=== PATIENT | female | born 1935 | race Caucasian/White ===

== ENCOUNTER 2016-09-25 13:51 | Emergency (ER) | payer BC, OTHER ==
--- NOTE | 2016-09-25 13:57 | PDOC ---
History of Present Illness - General Chief Complaint: Pain, Acute Stated Complaint: PT FELL IN [employer] INJURING BACK ON A RACK Time Seen by Provider: 09/25/16 13:57 - History of Present Illness Initial Comments: 09/25/16 14:59 Patient with h/o arthritis presents to the ED after fall on her right side of her chest as she was dragged by the momentum of a heavy bag she tried to lift. Denies hitting her head or LOC. Not on aspirin or anti-coagulant medicine. Pain in her right ribcage when she stands up but comfortable and pain-free when she' s laying down. Superficial abrasion on her right ribcage and right dorsal arm. No sob, n/v/d. Past History - Past Medical History Allergies/Adverse Reactions: Allergies Allergy/AdvReac Type Severity Reaction Status Date / Time amoxicillin Allergy Intermediate Rash Verified 09/25/16 14:03 Penicillins Allergy Intermediate Rash Verified 09/25/16 14:02 formaldehyde Allergy Verified 09/25/16 14:03 Home Medications: Ambulatory Orders Clindamycin [Cleocin -] 150 mg PO Q6H 09/25/16 Meloxicam [Mobic] 7.5 mg PO DAILY 09/25/16 Methotrexate Sodium [Methotrexate] 2.5 mg PO WEEKLY 09/25/16 Omeprazole Magnesium [Prilosec] 10 mg PO 09/25/16 *Physical Exam - Physical Exam General Appearance: Yes: Nourished, Appropriately Dressed, Apparent Distress HEENT: positive: EOMI, UZMA, Normal ENT Inspection, Normal Voice, Symmetrical Neck: positive: Trachea midline, Normal Thyroid, Supple. negative: Tender Respiratory/Chest: positive: Lungs Clear, Normal Breath Sounds. negative: Chest Tender Cardiovascular: positive: Regular Rhythm, Regular Rate, S1, S2 Vascular Pulses: Dorsalis-Pedis (R): 2+, Doralis-Pedis (L): 2+ Gastrointestinal/Abdominal: positive: Normal Bowel Sounds, Soft. negative: Tender, Organomegaly Musculoskeletal: positive: Normal Inspection. negative: CVA Tenderness Extremity: positive: Normal Capillary Refill Neurologic: positive: upper doubler II-XII NML intact, Fully Oriented, Alert, Normal Mood/ Affect, Normal Response Medical Decision Making - Medical Decision Making 09/25/16 15:30 81F with pmh of arthritis presents to the ED after fall on her right ribcage. Rib and chest xray negative. Likely rib contusion. Tylenol for pain Follow up with PCP DR. Cleo Lawrence *DC/Admit/Observation/Transfer Diagnosis at time of Disposition: Fall, Rib contusion - Discharge Dispostion Disposition: HOME Condition at time of disposition: Stable Admit: No - Referrals Referrals: Cleo Lawrence MD [Staff Physician] - - Patient Instructions Printed Discharge Instructions: DI for Rib Contusion Additional Instructions: Follow up with Primary Physician
--- NOTE | 2016-09-25 13:58 | PDOC ---
Attending Attestation - Resident Resident Name: Jean BaptisteElver - ED Attending Attestation I have performed the following: I have examined & evaluated the patient, The case was reviewed & discussed with the resident, I agree w/resident's findings & plan, Exceptions are as noted - HPI HPI: 09/25/16 14:57 Patient with chronic osteoarthritis and benign vertigo, which are stable, last or balance in the store, fell against a shelf, impacting her right posterior rib cage. She then fell to the floor on her buttocks. She did not strike her head or injure her neck. She has only mild pain in the lateral right rib cage with movement of the trunk and deep inspiration. - Physicial Exam PE: 09/25/16 14:58 Vital signs stable. Fully alert. 2-3 cm contusion right mid posterior lateral rib cage. Full breath sounds, no splinting. Normal cardiovascular exam. Normal abdominal exam with no distention, or tenderness. No significant CVAT - Medical Decision Making 09/25/16 14:59 Contusion of the rib cage, mid right lateral. Mild pain. X-ray of the ribs and lungs negative. Symptomatic treatment and follow-up primary physician. Return to ER if symptoms worsen. Fully ambulatory and in no significant discomfort at discharge. Tylenol for pain. 09/25/16 15:08
[2016-09-25 14:18] VITALS: BP 161/62; PULSE 82; TEMP 98.3; BMI 26.0
[2016-09-25] MEDS ORDERED: ACETAMINOPHEN 325 MG TABLET (FP) PO ONE (15:08)
[2016-09-25] MEDS ORDERED: ACETAMINOPHEN 325 MG TABLET (FP) ONE (15:17)
== END 2016-09-25 15:33 | disposition home or self-care (01) ==
LOC: FER 13:51
DX: S20.219A Contusion of unspecified front wall of thorax, initial encounter (principal); W18.39XA Other fall on same level, initial encounter; Y93.89 Activity, other specified; Y92.512 Supermarket, store or market as the place of occurrence of the external cause; M19.90 Unspecified osteoarthritis, unspecified site
CPT/HCPCS: 71020-TC; 71101-TC-RT; 99282-25

== ENCOUNTER 2019-11-06 14:49 | Emergency (ER) | payer OTHER ==
[2019-11-06 15:15] VITALS: BMI 27.3
--- NOTE | 2019-11-06 15:48 | PDOC ---
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 She was sitting on the end of the bed. Fall 2: fell over next day when she bent over to tack picker a bandaid. did not hit head. no LOC. no lightheadedness. no prodromal sx; no palpitations, acute change in vision or hearing, no LOC. Recent visit to ENT for R ear fullness. 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 11/06/19 15:55 Past History - Medical History Allergies/Adverse Reactions: Allergies Allergy/AdvReac Type Severity Reaction Status Date / Time amoxicillin Allergy Intermediate Rash Verified 11/06/19 15:08 Penicillins Allergy Intermediate Rash Verified 11/06/19 15:08 formaldehyde Allergy Verified 11/06/19 15:08 Home Medications: Ambulatory Orders Meloxicam [Mobic] 7.5 mg PO DAILY 09/25/16 Methotrexate Sodium [Methotrexate] 2.5 mg PO WEEKLY 09/25/16 Omeprazole Magnesium [Prilosec] 10 mg PO DAILY 09/25/16 Cephalexin [Keflex] 500 mg PO BID #14 capsule 11/06/19 COPD: No HTN: No (rheumatoid arthritis) Other medical history: 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 - Surgical History Appendectomy: Yes - Reproductive History Is Patient Now?: No - Psycho-Social/Smoking History Smoking History: Never smoked Review of Systems - Review of Systems Able to Perform ROS?: Yes Is the patient limited Telugu proficient: No Constitutional: Yes: Weakness. No: Chills, Diaphoresis, Fever, Loss of Appetite HEENTM: Yes: Other (sensation of ear impaction). No: Blurred Vision, Tinnitus Respiratory: No: Cough, Shortness of Breath, SOB with Exertion Cardiac (ROS): Yes: Lightheadedness, Palpitations. No: Chest Pain, Edema, Irregular Heart Rate, Syncope ABD/GI: No: Nausea, Poor Appetite, Vomiting : Yes: Hematuria. No: Burning, Dysuria Musculoskeletal: Yes: Muscle Weakness. No: Muscle Pain Integumentary: No: Rash Neurological: No: Headache, Numbness, Paresthesia Endocrine: No: Unexplained Weight Gain, Unexplained Weight Loss All Other Systems: Reviewed and Negative *Physical Exam - Vital Signs Last Vital Signs Temp Pulse Resp BP Pulse Ox 99.0 F 79 16 165/70 98 11/06/19 15:17 11/06/19 15:17 11/06/19 15:17 11/06/19 15:17 11/06/19 15:17 - Physical Exam General Appearance: Yes: Nourished, Appropriately Dressed, Apparent Distress Neck: positive: Trachea midline, Normal Thyroid Respiratory/Chest: positive: Lungs Clear, Normal Breath Sounds. negative: Respiratory Distress, Accessory Muscle Use Cardiovascular: positive: Regular Rhythm, Regular Rate, S1, S2 Gastrointestinal/Abdominal: positive: Normal Bowel Sounds, Soft Musculoskeletal: positive: Normal Inspection. negative: CVA Tenderness, Vertebral Tenderness Extremity: positive: Normal Capillary Refill, Normal Inspection, Normal Range of Motion Neurologic: positive: Fully Oriented, Alert, Normal Response, Motor Strength 5/5 Heart Score/ECG Review - ECG Intrepretation Rhythm: Regular Rhythm - [place]: Normal - ST and T Flattened T Waves: No - ECG Impressions Normal ECG: Yes Comment:: 11/06/19 17:15 NSR ED Treatment Course - LABORATORY CBC & Chemistry Diagram: 11/06/19 16:30 11/06/19 16:30 Medical Decision Making - Medical Decision Making 11/06/19 16:02 84 yo F w/ PMHx vertigo, R eye blindness, R ear sebum impaction presents w/ two falls while bending over. DDx - 1. CVA/TIA 2. Vertebrobasilar insufficiency 3. BPPV 4. UTI 5. hypovolemia 11/06/19 21:12 no allergy to PCN 11/07/19 14:36 pt's UA was + for UTI -> will give ceftriaxone IV and reassess. milestones to go home: 1. tolerate PO -> achieved 2. normal BUN and Cr -> achieved 3. feels strong enough to go home. -> achieved 4. must ambulate -> achieved will DC home w/ Keflex. pt does not have true PCN allergy per patient Discharge - Discharge Information Problems reviewed: Yes Clinical Impression/Diagnosis: UTI (urinary tract infection) Qualifiers: Urinary tract infection type: site unspecified Hematuria presence: without hematuria Qualified Code(s): N39.0 - Urinary tract infection, site not specified Condition: Fair Disposition: HOME - Admission No - Additional Discharge Information Prescriptions: Cephalexin [Keflex] 500 mg PO BID #14 capsule - Follow up/Referral Referrals: Cleo Lawrence MD [Primary Care Provider] - - Patient Discharge Instructions Patient Printed Discharge Instructions: DI for Urinary Tract Infection (UTI) Additional Instructions: You were seen in the ER today for urinary symptoms. The results of your labs and imaging today showed a urinary tract infection. Please follow-up with your primary care doctor within 1-2 days to discuss your visit and make sure your symptoms have improved. Please return to the ER if you have any worsening pain, development of fevers or chills, loss of consciousness, inability to tolerate food or fluids, or any other concerns. I have sent medications to your pharmacy. Please take these medications as prescribed. - Post Discharge Activity
[2019-11-06] MEDS ORDERED: LACTATED RINGERS SOLUTION 1000 ML INFUS.BAG IV ONE (15:57)
--- OUTSIDE RECORDS SUMMARY | 2019-11-06 16:57 | XMS ---
:1935 Author [facility] Support Name Relationship Address Phone RE Unavailable Unavailable Unavailable FIDEL MILLAN FRIEND [place] [address] MAY ROBLES DAUGHTER [address] [place] [address] Re-disclosure Warning The records that you are about to access may contain information from federally- assisted alcohol or drug abuse programs. If such information is present, then the following federally mandated warning applies: This information has been disclosed to you from records protected by federal confidentiality rules (42 CFR part 2). The federal rules prohibit you from making any further disclosure of this information unless further disclosure is expressly permitted by the written consent of the person to whom it pertains or as otherwise permitted by 42 CFR part 2. A general authorization for the release of medical or other information is NOT sufficient for this purpose. The Federal rules restrict any use of the information to criminally investigate or prosecute any alcohol or drug abuse patient.The records that you are about to access may contain highly sensitive health information, the redisclosure of which is protected by Article 27-F of the [facility] Public Health law. If you continue you may haveaccess to information: Regarding HIV / AIDS; Provided by facilities licensed or operated by the [facility] Office of Mental Health; or Provided by the [facility] Office for People With Developmental Disabilities. If such information is present, then the following [facility] mandated warning applies: This information has been disclosed to you from confidential records which are protected by state law. State law prohibits you from making any further disclosure of this information without the specific written consent of the person to whom it pertains, or as otherwise permitted by law. Any unauthorized further disclosure in violation of state law may result in a fine or correction sentence or both. A general authorization for the release of medical or other information is NOT sufficient authorization for further disclosure. Insurance Providers Payer name Policy type Policy ID Covered Covered green party's Policy P selin / Coverage green party ID relationship to [employer] type [employer] [id number] SP [id number] MEDICARE
--- NOTE | 2019-11-06 17:18 | PDOC ---
Documentation entered by Lang Washburn SCRIBE, acting as scribe for Shwetha Suh DO. Shwetha Suh DO: This documentation has been prepared by the [employer], SCRIBE, under my direction and personally reviewed by me in its entirety. I confirm that the documentation accurately reflects all work, treatment, procedures, and medical decision making performed by me. Attending Attestation - Resident Resident Name: Sandro Enriquez - ED Attending Attestation I have performed the following: I have examined & evaluated the patient, The case was reviewed & discussed with the resident, I agree w/resident's findings & plan, Exceptions are as noted - HPI HPI: 11/06/19 15:32 The patient is a 84 year old female with a significant PMH of blood transfusion, anemia, vertigo, R eye blindness secondary to CN2 ischemic stroke who presents to the emergency department s/p 2 falls. Pt states she fell once yesterday and once today while leaning forward to pick something up from the floor. Pt denies hitting her head. Pt denies LOC. Pt reports she feels lightheaded when she sits up. The patient denies chest pain, shortness of breath, headache and dizziness. Denies fever, chills, cough, nausea, vomiting, diarrhea and constipation. Allergies: NKDA PCP: Cleo Lawrence - Physicial Exam PE: 11/06/19 15:33 GENERAL: Awake, alert, and fully oriented, in no acute distress HEAD: No signs of trauma EYES: EOMI, sclera anicteric, conjunctiva clear ENT: hearing grossly normal NECK: Normal ROM, supple, LUNGS: Breath sounds equal, clear to auscultation bilaterally. No wheezes, and no crackles HEART: Regular rate and rhythm, normal S1 and S2, no murmurs, rubs or gallops ABDOMEN: Soft, nontender, normoactive bowel sounds. No guarding, no rebound. No masses EXTREMITIES: Normal range of motion, no edema. No clubbing or cyanosis. NEUROLOGICAL: Cranial nerves II through XII grossly intact. generally weak all over SKIN: Warm, Dry, normal turgor, no rashes lesions noted. 11/06/19 17:12 - Medical Decision Making 11/06/19 17:14 a/p: 84yo female with urinary freq -yesterday with feeling of being off balance and almost fell -generally weak all over -diarrhea yesterday -no head injury or loc -pt denies cp/sob -denies dysuria, but urinary freq -suspect uti causing weakness -will send labs, ekg, cxr -ua, ucx -will give ivf hydration -will monitor and reassess 11/06/19 17:58 pt with UTI will start abx pt unsure if she was allergic to pcn, thinks poss rash will give rocephin 11/06/19 18:03 no elevated wbc chem pending 11/06/19 19:14 pt signed out pending chem Heart Score/ECG Review - ECG Intrepretation Comment:: 11/06/19 17:17 sinus at 67, nl axis, nl interval, no acute st changes, t wave inversions v1-2 Discharge - Discharge Information Problems reviewed: Yes Clinical Impression/Diagnosis: UTI (urinary tract infection) Condition: Fair - Follow up/Referral Referrals: Cleo Lawrence MD [Primary Care Provider] - - Patient Discharge Instructions - Post Discharge Activity
[2019-11-06 17:51] LABS: EPI CELLS 5 /uL (0-25.1); HYALINE CASTS 1 /uL (0-3.1); PH,URINE 6.5 (5.0-8.0); URINE APPEARANCE CLOUDY; URINE BACTERIA 6065 /uL (0-1359); URINE BILIRUBIN NEGATIVE (NEGATIVE); URINE COLOR YELLOW; URINE GLUCOSE (UA) NEGATIVE (NEGATIVE); URINE KETONE NEGATIVE (NEGATIVE); URINE LEUK ESTERASE 3+ (NEGATIVE); URINE NITRITE NEGATIVE (NEGATIVE); URINE PROTEIN TRACE (NEGATIVE); URINE RBC 20 /uL (0-23.9); URINE UROBILINOGEN 0.2 mg/dL (0.2-1.0); URINE WBC 1233 /uL (0-25.8)
[2019-11-06 17:53] LABS: BASO % 0.5 % (0-2.0); HEMATOCRIT 37.9 % (32.4-45.2); HEMOGLOBIN 13.1 GM/dL (10.7-15.3); MCH 33.1 pg (25.7-33.7); MCHC 34.5 g/dl (32.0-36.0); MEAN PLT VOLUME 8.7 fl (7.5-11.1); MONO % 9.4 % (3.8-10.2); NEUT % 55.1 % (42.8-82.8); PLATELET COUNT 228 K/MM3 (134-434); RBC 3.95 M/mm3 (3.60-5.2); RDW 13.1 % (11.6-15.6); WHITE BLOOD COUNT 8.3 K/mm3 (4.0-10.0)
[2019-11-06] MEDS ORDERED: CEFTRIAXONE 1 GM in DEXTROSE 5%-WATER - 100 ML IVPB ONE (17:57)
[2019-11-06] MEDS ORDERED: CEFTRIAXONE 1 GM/50 ML BAG ONE (18:08)
[2019-11-06 18:55] LABS: ALBUMIN 3.4 g/dl (3.4-5.0); ALK PHOS 121 U/L (45-117); ANION GAP 7 MMOL/L (8-16); BILIRUBIN,TOTAL 0.4 mg/dL (0.2-1); BLOOD UREA NITROGEN 19.6 mg/dL (7-18); CALCIUM 9.2 mg/dL (8.5-10.1); CHLORIDE 108 mmol/L (98-107); CO2 26 mmol/L (21-32); CREATININE 0.9 mg/dL (0.55-1.3); GLUCOSE,RANDOM 82 mg/dL (74-106); POTASSIUM 4.3 mmol/L (3.5-5.1); SGOT/AST 35 U/L (15-37); SGPT/ALT 29 U/L (13-61); SODIUM 141 mmol/L (136-145); TOT PROT 6.6 g/dl (6.4-8.2)
[2019-11-06 22:46] VITALS: BP 149/47; PULSE 85; TEMP 98.3
--- NOTE | 2019-11-07 10:01 | EKG ---
Test Reason : Blood Pressure : / mmHG Vent. Rate : 067 BPM Atrial Rate : 067 BPM P-R Int : 138 ms QRS Dur : 076 ms QT Int : 406 ms P-R-T Axes : 054 030 041 degrees QTc Int : 429 ms NORMAL SINUS RHYTHM NORMAL ECG NO PREVIOUS ECGS AVAILABLE Confirmed by Luis High ([id number]) on 11/07/2019 10:00:30 AM Referred By: Confirmed By:Luis High
== END 2019-11-06 23:00 | disposition home or self-care (01) ==
LOC: JER 14:49
DX: N39.0 Urinary tract infection, site not specified (principal)
CPT/HCPCS: 36415; 71045-TC-FY; 80053; 81003; 82550; 82553; 84484; 85025; 87086; 87186; 93005; 93010; 99285-25

== ENCOUNTER 2021-12-08 18:59 | Inpatient (IN) | payer OTHER ==
[2021-12-08 20:47] LABS: BASO % 1.1 % (0-2.0); EOS % 0.8 % (0-4.5); HEMATOCRIT 38.2 % (32.4-45.2); HEMOGLOBIN 13.2 GM/dL (10.7-15.3); LYMPH % 23.5 % (8-40); MCH 33.6 pg (25.7-33.7); MCHC 34.7 g/dl (32.0-36.0); MEAN CELL VOLUME 96.8 fl (80-96); MEAN PLT VOLUME 7.8 fl (7.5-11.1); MONO % 9.8 % (3.8-10.2); NEUT % 64.8 % (42.8-82.8); PLATELET COUNT 330 10^3/uL (134-434); RBC 3.94 M/mm3 (3.60-5.2); RDW 13.4 % (11.6-15.6); WHITE BLOOD COUNT 9.5 K/mm3 (4.0-10.0)
[2021-12-08 20:57] LABS: INR 0.94 (0.83-1.09); PROTHROMBIN TIME (PATIENT) 10.8 SEC (9.7-13.0)
[2021-12-08 20:59] LABS: ACTIVATED PTT 22.3 SECONDS (25.2-36.5)
[2021-12-08] MEDS ORDERED: ASPIRIN 325 MG TABLET PO ONE (21:05)
[2021-12-08 21:10] LABS: CHLORIDE 109 mmol/L (98-107); SODIUM 139 mmol/L (136-145)
[2021-12-08 21:12] LABS: BLOOD UREA NITROGEN 27.6 mg/dL (7-18); CALCIUM 9.3 mg/dL (8.5-10.1); CO2 25 mmol/L (21-32)
[2021-12-08 21:13] LABS: ALBUMIN 3.3 g/dl (3.4-5.0); GLUCOSE,RANDOM 91 mg/dL (74-106)
[2021-12-08] MEDS ORDERED: ASPIRIN 325 MG TABLET ONE (21:13)
[2021-12-08 21:16] LABS: CREATININE 1.1 mg/dL (0.55-1.3)
[2021-12-08 21:17] LABS: BILIRUBIN,TOTAL 0.4 mg/dL (0.2-1); TOT PROT 6.9 g/dl (6.4-8.2)
[2021-12-08 21:18] LABS: ALK PHOS 105 U/L (45-117)
[2021-12-08 21:23] LABS: ANION GAP 5 MMOL/L (8-16); SGOT/AST 86 U/L (15-37); SGPT/ALT 24 U/L (13-61)
[2021-12-08 21:44] LABS: PH,URINE 7.5 (5.0-8.0); URINE APPEARANCE CLEAR; URINE BILIRUBIN NEGATIVE (NEGATIVE); URINE COLOR YELLOW; URINE GLUCOSE (UA) NEGATIVE (NEGATIVE); URINE KETONE NEGATIVE (NEGATIVE); URINE LEUK ESTERASE NEGATIVE (NEGATIVE); URINE NITRITE NEGATIVE (NEGATIVE); URINE PROTEIN NEGATIVE (NEGATIVE); URINE UROBILINOGEN 0.2 mg/dL (0.2-1.0)
[2021-12-08 22:45] LABS: CALCIUM 9.3 mg/dL (8.5-10.1)
[2021-12-08 22:46] LABS: BLOOD UREA NITROGEN 27.6 mg/dL (7-18)
[2021-12-08 22:49] LABS: CREATININE 0.9 mg/dL (0.55-1.3)
[2021-12-08 23:09] LABS: MAGNESIUM 2.2 mg/dL (1.8-2.4)
[2021-12-08 23:13] LABS: PHOSPHOROUS 3.2 mg/dL (2.5-4.9)
[2021-12-09 07:30] LABS: EOS % 1.2 % (0-4.5); HEMATOCRIT 36.2 % (32.4-45.2); HEMOGLOBIN 12.5 GM/dL (10.7-15.3); LYMPH % 28.7 % (8-40); MCH 33.3 pg (25.7-33.7); MCHC 34.6 g/dl (32.0-36.0); MEAN CELL VOLUME 96.3 fl (80-96); MEAN PLT VOLUME 7.8 fl (7.5-11.1); MONO % 11.2 % (3.8-10.2); NEUT % 57.9 % (42.8-82.8); PLATELET COUNT 299 10^3/uL (134-434); RBC 3.76 M/mm3 (3.60-5.2); RDW 13.1 % (11.6-15.6); WHITE BLOOD COUNT 8.4 K/mm3 (4.0-10.0)
[2021-12-09 08:12] LABS: CALCIUM 8.7 mg/dL (8.5-10.1)
[2021-12-09 08:13] LABS: ALBUMIN 3.2 g/dl (3.4-5.0); MAGNESIUM 2.3 mg/dL (1.8-2.4)
[2021-12-09 08:14] LABS: BILIRUBIN,TOTAL 0.4 mg/dL (0.2-1)
[2021-12-09 08:16] LABS: CREATININE 0.7 mg/dL (0.55-1.3); PHOSPHOROUS 2.7 mg/dL (2.5-4.9)
[2021-12-09 08:17] LABS: TOT PROT 5.9 g/dl (6.4-8.2)
[2021-12-09] MEDS ORDERED: ASPIRIN COATED 81 MG TABLET.EC ONE (10:00)
[2021-12-09] MEDS: ASPIRIN 81 MG CHEWABLE TABLETS PO SCH (10:01)
[2021-12-09] MEDS ORDERED: ENOXAPARIN NA (PORCINE) 40 MG/0.4 ML DISP.SYRIN SQ ONE (10:01)
[2021-12-09] MEDS: ENOXAPARIN NA (PORCINE) 40 MG/0.4 ML DISP.SYRIN SQ SCH (10:02)
[2021-12-09 18:41] VITALS: BMI 28.0
[2021-12-09] MEDS: ATORVASTATIN CA 40 MG TABLET (FP) PO SCH (21:28)
[2021-12-09] MEDS ORDERED: ATORVASTATIN CA 80 MG TABLET (FP) PO SCH (22:00)
[2021-12-10] MEDS: ENOXAPARIN NA (PORCINE) 40 MG/0.4 ML DISP.SYRIN SQ SCH (09:55)
[2021-12-10] MEDS: ASPIRIN 81 MG CHEWABLE TABLETS PO SCH (09:55)
[2021-12-10] MEDS ORDERED: IBUPROFEN 600 MG TABLET (FP) PO PRN (14:02)
[2021-12-10] MEDS: ATORVASTATIN CA 40 MG TABLET (FP) PO SCH (21:38)
[2021-12-11] MEDS: ENOXAPARIN NA (PORCINE) 40 MG/0.4 ML DISP.SYRIN SQ SCH (10:01)
[2021-12-11] MEDS: ASPIRIN 81 MG CHEWABLE TABLETS PO SCH (10:01)
[2021-12-11] MEDS ORDERED: PANTOPRAZOLE 40 MG TABLET PO ONE (11:39)
[2021-12-11 14:40] VITALS: RESP 18
[2021-12-11 15:01] VITALS: BP 159/58; PULSE 77; TEMP 98.1
== END 2021-12-11 18:51 | disposition home or self-care (01) | DRG 69 ==
LOC: JER 18:59 → JERBED 20:57 → J4W 12-09 17:24
PROVIDERS: ADMIT Internal Medicine; ATTEND Internal Medicine
DX: G45.9 Transient cerebral ischemic attack, unspecified (principal); R42 Dizziness and giddiness; H47.011 Ischemic optic neuropathy, right eye; R53.1 Weakness; Z88.0 Allergy status to penicillin; M06.9 Rheumatoid arthritis, unspecified; H40.9 Unspecified glaucoma; H54.40 Blindness, one eye, unspecified eye; I10 Essential (primary) hypertension; R26.81 Unsteadiness on feet; K21.9 Gastro-esophageal reflux disease without esophagitis; R39.15 Urgency of urination; I65.21 Occlusion and stenosis of right carotid artery; W18.30XA Fall on same level, unspecified, initial encounter; Y92.89 Other specified places as the place of occurrence of the external cause
CPT/HCPCS: 36415; 70450-TC; 70496-TC; 70498-TC; 70544-TC; 70551-TC; 71045-TC-FY; 80048; 80053; 80061; 81003; 82962; 83735; 84100; 84443; 84484; 85025; 85610; 85730; 87086; 93005; 93010; 93306-TC; 97116-GP; 99291; C9803-CS; U0003; U0005

== ENCOUNTER 2024-03-31 13:35 | Emergency (ER) | payer OTHER ==
[2024-03-31 14:18] VITALS: TEMP 98.2; BMI 31.3
[2024-03-31] MEDS: ASPIRIN 81 MG CHEWABLE TABLETS PO ONE (14:45)
[2024-03-31 15:43] LABS: BASO % 0.2 % (0-2.0); HEMATOCRIT 21.2 % (32.4-45.2); LYMPH % 7.8 % (8-40); MCH 27.5 pg (25.7-33.7); MCHC 31.4 g/dl (32.0-36.0); MEAN CELL VOLUME 87.4 fl (80-96); MEAN PLT VOLUME 8.1 fl (7.5-11.1); MONO % 8.1 % (3.8-10.2); NEUT % 83.9 % (42.8-82.8); PLATELET COUNT 306 10^3/uL (134-434); RBC 2.42 M/mm3 (3.60-5.2); RDW 15.2 % (11.6-15.6); WHITE BLOOD COUNT 11.7 K/mm3 (4.0-10.0)
[2024-03-31] MEDS ORDERED: ACETAMINOPHEN INJECTION 100 ML ONE (15:45)
[2024-03-31 15:49] LABS: HEMOGLOBIN 6.7 GM/dL (10.7-15.3)
[2024-03-31 15:50] LABS: POTASSIUM 4.4 mmol/L (3.5-5.1)
[2024-03-31 15:52] LABS: CALCIUM 8.7 mg/dL (8.5-10.1); INR 1.03 (0.83-1.09); PROTHROMBIN TIME (PATIENT) 11.3 SEC (9.7-13.0)
[2024-03-31 15:53] LABS: ALBUMIN 3.1 g/dl (3.4-5.0); MAGNESIUM 2.3 mg/dL (1.8-2.4)
[2024-03-31 15:55] LABS: ACTIVATED PTT 24.8 SECONDS (25.2-36.5)
[2024-03-31 15:56] LABS: CREATININE 1.2 mg/dL (0.55-1.3)
[2024-03-31 15:57] LABS: BILIRUBIN,TOTAL 0.3 mg/dL (0.2-1); TOT PROT 5.8 g/dl (6.4-8.2)
[2024-03-31] MEDS: SODIUM CHLORIDE 0.9% 500 ML INFUS.BAG IV ONE (16:14)
[2024-03-31] MEDS: ACETAMINOPHEN 1000 MG/100 ML BAG IVPB ONE (16:15)
[2024-03-31] MEDS ORDERED: ASPIRIN 81 MG CHEWABLE TABLETS ONE ×2 (16:24→17:34)
[2024-03-31 17:08] LABS: N-TERMINAL BNP 15822.8 pg/ml (5-450)
[2024-03-31] MEDS ORDERED: FUROSEMIDE 40 MG/4 ML INJECTABLE VIAL ONE (17:34)
[2024-03-31] MEDS: FUROSEMIDE 40 MG/4 ML INJECTABLE VIAL IVPUSH ONE (17:56)
[2024-03-31 19:31] VITALS: BP 136/62; PULSE 116
[2024-03-31 19:39] VITALS: RESP 20
== END 2024-03-31 18:00 | disposition short-term general hospital (02) ==
LOC: JER 13:35
PROC: 3E033NZ Introduction of Analgesics, Hypnotics, Sedatives into Peripheral Vein, Percutaneous Approach (ICD-10-PCS; principal; 2024-03-31)
PROC: 3E033GC Introduction of Other Therapeutic Substance into Peripheral Vein, Percutaneous Approach (ICD-10-PCS; 2024-03-31)
DX: I21.29 ST elevation (STEMI) myocardial infarction involving other sites (principal); I26.99 Other pulmonary embolism without acute cor pulmonale; D64.9 Anemia, unspecified; J96.90 Respiratory failure, unspecified, unspecified whether with hypoxia or hypercapnia; R07.89 Other chest pain; R42 Dizziness and giddiness; Z20.822 Contact with and (suspected) exposure to COVID-19
CPT/HCPCS: 0241U-QW; 36415; 36430; 36511; 71045-TC-FY; 80053; 83735; 83880; 84484; 85025; 85610; 85730; 93005; 93010; 99285-25; J0131; P9038; P9058